=== PATIENT | male | born 1955 | race Caucasian/White ===

== ENCOUNTER → 2021-09-16 | Outpatient (CLI) | payer MEDICARE ==
[2021-09-16 09:24] LABS: CREATININE 0.9 mg/dL (0.7-1.3)
== END ==
LOC: CAT 08:09
PROVIDERS: ATTEND Surgery
DX: K76.0 Fatty (change of) liver, not elsewhere classified (principal); K43.9 Ventral hernia without obstruction or gangrene; N20.0 Calculus of kidney; M47.815 Spondylosis without myelopathy or radiculopathy, thoracolumbar region

== ENCOUNTER → 2021-09-25 | Outpatient (CLI) | payer OTHER | LOC: CAT 14:42 | PROVIDERS: ATTEND Family Medicine | DX: Z13.6 Encounter for screening for cardiovascular disorders (principal); I25.10 Atherosclerotic heart disease of native coronary artery without angina pectoris; E78.00 Pure hypercholesterolemia, unspecified ==

== ENCOUNTER → 2021-10-18 | Outpatient (CLI) | payer OTHER ==
[~2021-10-18] MED LIST: COLACE 100 MG100 MG PO; IBUPROFEN 200200 M1 PO; MIRALAX17 GM PO; OXYCODONE HCL 55 MG PO; PRINIVIL40 MG PO
== END ==
LOC: LAB 09:20
PROVIDERS: ATTEND Student in an Organized Health Care Education/Training Program
DX: Z01.812 Encounter for preprocedural laboratory examination (principal); Z20.822 Contact with and (suspected) exposure to COVID-19

== ENCOUNTER → 2021-10-22 | Day surgery (SDC) | payer OTHER ==
[~2021-10-22] VITALS: Ht 188 cm; Wt 118.8 kg
[2021-10-22 07:02] VITALS: BP 158/83
[2021-10-22 08:03] LABS: ALBUMIN 3.8 g/dL (3.4-5.0); TOTAL BILIRUBIN 0.6 mg/dL (0.2-1.0); TOTAL PROTEIN 7.2 g/dL (6.4-8.2)
[2021-10-22 10:47] VITALS: BP 158/83
--- NOTE | 2021-10-24 13:08 | PATH ---
[facility] [place] [address] PATHOLOGY RPT PROCEDURE Name: SOLO BEE Room #: [place] [facility] [place] [id number] Admission: 10/22/21 Date of : 51 Discharge: Report #: [id number] Path Case #: [id number] [facility] Accession Number: [id number] . 01 Material submitted: . PART A: hernia - HERNIA SAC PART B: neck - MASS RIGHT POSTERIOR NECK. Modifiers: right, posterior . 01 Clinical history: . EXCISION MASS LAPAROSCOPIC HERNIA REPAIR/VENTRAL RIGHT NECK MASS, VENTRAL HERNIA . 02 Diagnosis: A. Hernia sac, excision: - Mesothelial lined fibroadipose tissue, compatible with clinical history of hernial sac. - Negative for atypia or malignancy. . B. 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 - Negative for atypia or malignancy. (ANK:julio c; 10/24/2021) QTP 10/24/2021 0937 Local . 02 Electronically signed: . Tali Faulkner MD, Pathologist NPI- [id number] . 01 Gross description: . A. Fixative: Formalin Labeled: Hernia sac Specimen received: Multiple segments of pink-ramos to yellow-ramos, fibromembranous to fibroadipose tissue Dimensions: 7.3 x 4.4 x 1.7 cm Abnormalities: None identified Submitted representatively in cassette A1-A2. . B. Fixative: Formalin Labeled: Mass-right posterior neck Specimen received: Intact segment of pink-yellow, lobulated tissue Dimensions: 4.1 x 3.8 x 1.5 cm External surface: Smooth, lobulated Cut surface: Pale pink-yellow, glistening . Title Clerk Automobile sections are submitted in B1-B2. ([facility]; 10/22/2021) [address] [address] PATHOLOGY RPT PROCEDURE Name: SOLO BEE Room #: REG [facility].#: [id number] Admission: 10/22/21 Date of : 51 Discharge: Report #: [id number] Path Case #: [id number] NRI/NRI 10/22/2021 1801 Local . 02 Pathologist provided ICD-10: K43.9, R22.1 . 02 CPT . 493050, [id number] Specimen Comment: A courtesy copy of this report has been sent to [phone], [phone] Specimen Comment: [phone] Specimen Comment: Report sent to / DR WYNNE Performed at: [address], [place], [place] [id number] MD Keenan Hsu MD Phone: [phone] Performed at: [address] [id number] MD Tali Faulkner MD Phone: [phone]
== END | disposition home or self-care (01) ==
LOC: OR 06:29
PROVIDERS: Anesthesiology; ATTEND Surgery
DX: K43.0 Incisional hernia with obstruction, without gangrene (principal); D17.0 Benign lipomatous neoplasm of skin and subcutaneous tissue of head, face and neck; I10 Essential (primary) hypertension; Z98.890 Other specified postprocedural states; Z79.899 Other long term (current) drug therapy
CPT/HCPCS: 50010; 50101; 50386; 50455; 50555; 50979; 50984; 52265; 53307; 53310; 53312; 54022; 54118; 56462; 56524; 56525; 56526; 56530; 57092; 58574; 58586; 58911; 62110; 62900; 70005